=== PATIENT | female | born 1995 | race Caucasian/White ===

== ENCOUNTER 2016-06-05 05:31 | Day surgery (SDC) | payer OTHER ==
[2016-06-05] VITALS (8 sets, daily range): BP systolic 88–118; BP diastolic 44–66; PULSE 76–88; RESP 13–18; O2SAT 97–100
[~2016-06-05] VITALS: Ht 162.6 cm; Wt 89.1 kg
[2016-06-05] MEDS ORDERED: Ondansetron 2 mg/mL 2 mL Inj ONE (05:32)
[2016-06-05] MEDS ORDERED: fentaNYL-PF 50 mCg/mL 2 mL Inj ONE (05:32)
[2016-06-05] MEDS ORDERED: Propofol 10,000 mCg/mL 20 mL Inj ONE (05:32)
[2016-06-05] MEDS ORDERED: Dexamethasone 4 mg/mL Inj ONE (05:32)
[2016-06-05] MEDS ORDERED: Lactated Ringer's 1,000 ML IV ONE ×2 (05:38→07:46)
[2016-06-05] MEDS ORDERED: Lidocaine 1%-Epi 1:100,000 20 mL Inj NERVEBLOCK ONE (07:30)
[2016-06-05] MEDS ORDERED: Lactated Ringer's 500 ML IV PRN (07:46)
--- NOTE | 2016-06-05 07:46 | PCM.HPANE ---
Patient Data Surgeon Admitting Provider: Attending Provider:Sera Salvador MD Primary Care Physician:Krupa Link MD Other Provider:Neris Snideringham Anesthesia Reason for Visit Vaginal Band, Pelvic Pain Ht/WT & BMI Height (Feet): 5 Height (Inches): 4.00 Weight (Kilograms): 89.1 Body Mass Index 33.00 Allergies Coded Allergies: medroxyprogesterone (Verified Adverse Reaction, Severe, MENORRHAGIA, ) Past Anesthesia History Anesthesia History: Denies:: Abnormal Airway, Anesthesia Reactions, Difficult Intubation, Malignant Hyperthermia Diabetes History Hx Diabetes?: No MRSA MRSA: No Medications Hypertension Medication: No Home Meds Incl Beta José: No Discontinued Reported Medications #79/Iron Asp Gly/FA#1 (Prenate Elite Tablet)1 Each Tablet1 Each PO DAILY 04/05/14 Discontinued Scripts Ferrous Sulfate 325 Mg [id number] Mg PO BID #60 TABLET Ref 1 Prov:Chyna Soliman MD 04/11/14 [Ibuprofen] (Motrin)600 MG TABLET No Conflict Brwid510 Mg PO Q6H PRN For Pain # 30 TABLET Ref 1 Prov:Chyna Soliman MD 04/11/14 [Docusate Sodium] (Colace)100 MG CAPSULE No Conflict [id number] Mg PO BID #14 CAPSULE Prov:Chyna Soliman MD 04/11/14 Zolpidem (Ambien)5 Mg Uwdmxs04 Mg PO OT PRN insom #10 TAB Prov:Krupa Link MD 04/05/14 History History of ENT Problems?: No HEENT History: Denies:: Abnormal Airway Cataracts Difficult Intubation Dysphagia Glaucoma Hearing Problem Sinus Problem TMJ Hx of Heart Problems?: No Cardiovascular History: Denies:: Congestive Heart Failure Heart Murmur Hx of Respiratory Problem?: No Respiratory History: Denies:: Tuberculosis Use of C-PAP Machine Hx Neurologic Problems?: No Hx of GI Problems?: No Hx of Problems?: Yes Genitourinary History: Positive for:: Urinary Tract Infection (HX UTIS/ PYELONEPHRITIS) Female Hx: Denies:: Currently Pelvic Inflammatory (HX GENITAL HSV) Skin History: Denies:: History Skin Disorders? Pressure Ulcers Hx Musculoskeletal Problems?: No Hx of Psycho/Social Problems?: No Hx Surgeries?: Yes (C/S) Hx Any Other Health Problems?: Yes Other History: Denies:: Cancer Endocrine Disease Hospitalization Thyroid Disease History Blood Transfusions: Denies:: Blood Transfusions Hx Diabetes: No Hx Alcohol Use: Yes (occ )Hx Substance Use: No Smoking Status: Current Every Day Smoker Have You Smoked inLast 12 mo: Yes Stop/Bang S-Snoring: Do You Snore Loudly: No T-Tired: feel tired, fatigued: Yes O-Obsered: Observed not breath: No P-Blood Pressure: treated: Yes B- Body Mass Index > 35 kg/m2: No A- Age over 50: No N- Neck Large Circumference: No G- Gender Male: No ADAM Total Score: 2 ADAM Risk Assessment: Low Risk, <3 Yes Risk Assessment Category Category 1A: Patient has history of documented sleep apnea, and HAS NOT received any narcotic, sedative or anesthesia administration during this stay. Category 1B: Patient has history of documented sleep apnea, and HAS received any narcotic , sedative or anesthesia administration during this stay Category 2: Patient has SUSPECTED Obstructive Sleep Apnea, and HAS received any narcotic , sedative or anesthesia administration during this stay. Category 3: Patient has SUSPECTED Obstructive Sleep Apnea and HAS NOT received narcotic, sedative or anesthesia administration during this stay. Category 4: Outpatient in Procedural Areas with known sleep apnea or who screen positive for High Risk via the STOP/BANG questionnaire. Exam Exam Vital Signs Vital Signs Date Time Temp Pulse Resp B/P Pulse Ox O2 Delivery O2 Flow Rate FiO2 06/05/16 06:03 36.0 87 16 118/66 97 Room Air General Appearance: Alert, Oriented X3, Cooperative, No Acute Distress HEENT/AIRWAY: MP 2 Lungs: Clear to Auscultation, Normal Air Movement Heart: Exam Unremarkable, Regular Rate/Rhythm, No Murmurs/Rubs/Gallops Meds/Labs/Diagnostics Admission Meds Current Medications Lactated Ringer's (Lr) 1,000 ml @ ud STK-MED ONCE IV Last administered on t 05:38; Start 06/05/16 at 05:38; Stop 06/05/16 at 05:39; Status DC Plan Impression Patient chart reviewed, patient interviewed and anesthestic plan with risks, benefits, and alternatives discussed, and informed consent obtained. NPO Status: 06/04 at 1730 ASA Physical Status: ASA2 Mod Systemic Disease Anesthetic Plan: GA Bene/Risks/Altern/Consents: Yes HP Complete Prior to Induction: Yes Nj Suarez MD Jun 05, 2016 07:03
[2016-06-05] MEDS ORDERED: Labetalol 5 mg/mL 4 mL Inj IV PRN (07:50)
[2016-06-05] MEDS ORDERED: EPHEDrine Sulfate 50 mg/mL Inj IM PRN (07:50)
[2016-06-05] MEDS ORDERED: MetoCLOpramide 5 mg/mL 2 mL Inj IVPUSH PRN (07:50)
[2016-06-05] MEDS ORDERED: fentaNYL-PF 50 mCg/mL 2 mL Inj IVPUSH PRN (07:50)
[2016-06-05] MEDS ORDERED: EPHEDrine Sulfate 50 mg/mL Inj IVPUSH PRN (07:50)
[2016-06-05] MEDS ORDERED: Ondansetron 2 mg/mL 2 mL Inj IVPUSH PRN ×2 (07:50→08:15)
[2016-06-05] MEDS ORDERED: Atropine 0.4 mg/mL Inj IVPUSH PRN (07:50)
[2016-06-05] MEDS ORDERED: Phenylephrine 10,000 mCg/mL Inj IVPUSH PRN (07:50)
[2016-06-05] MEDS ORDERED: HYDROmorphone 1 mg/mL Inj IVPUSH PRN (07:50)
[2016-06-05] MEDS ORDERED: hydrOXYzine Inj 50 MG/1 mL SDV IM PRN (07:50)
--- NOTE | 2016-06-05 08:19 | PCM.ANEP1 ---
Post Anesthesia Phase 1 PACU Phase 1 Assessment Vital Signs Vital Signs Date Time Temp Pulse Resp B/P Pulse Ox O2 Delivery O2 Flow Rate FiO2 06/05/16 06:03 36.0 87 16 118/66 97 Room Air Anesthetic Administered: GA Level of Alertness: Sleepy, easy to arouse MURPHY's with Equal Strength: Yes Pain: No Nausea or Vomiting: No Oxygen Delivery: Simple Mask Lungs: Clear to Auscultation, Normal Air Movement Summary VSS, see RN notes for PACU VS Nj Suarez MD Jun 05, 2016 08:19
--- NOTE | 2016-06-05 08:22 | PCM.DIGYN ---
Surgical Discharge Instruction Dates of Hospitalization Date of Hospital Admission Providers Admitting Physician: Primary Care Physician: Krupa Link MD Attending Physician: Sera Salvador MD Diagnosis at Time of Discharge Diagnosis at time of discharge s/p vaginal septum removal Post-operative diagnosis vaginal septum Problems: Activity Discharge Activity-General: No restrictions Dressing and Incisional Care Hygiene: May shower, NO bathtub, hot tub or whirlpool Additional Instructions Discharge Instructions No sex or tampon in vaginal for the next 2 weeks Please call office if heavy vaginal bleeding, severe pain, foul smelling discharge, fever more than 100.4. Follow Up Plan Follow Up Plan 2 weeks in office Follow-up appointment: Weeks (2) Call your provider for: Fever, Chills, Shortness of breath, Heavy vaginal bleeding Sera Salvador MD Jun 05, 2016 08:22
--- NOTE | 2016-06-05 08:24 | PCM.ANEP2 ---
Post Anesthesia Evaluation ASA/CMS Post Anesthesia VS in Patient's Normal Range?: Yes Resp Stable; Airway Patent?: Yes CV Function & Hydration Stable: Yes Mental Status Recovered?: Yes Pain control Satisfactory?: Yes N/V Control Satisfactory?: Yes Nj Suarez MD Jun 05, 2016 08:24
--- NOTE | 2016-06-05 13:43 | OP ---
[address] [address] OPERATIVE REPORT PATIENT: NEPTALI WHITE : 1995 MR#: [id number] ADMIT: 06/05/2016 JOB ID: [id number] DATE OF SURGERY: 06/05/2016 PREOPERATIVE DIAGNOSIS(ES): Symptomatic vaginal septum. POSTOPERATIVE DIAGNOSIS(ES): Symptomatic vaginal septum. SURGEON: Sera Salvador MD INDICATIONS: This is a 20-year-old female who presented to the office for pelvic pain. During examination, it was noted she had vaginal band which is from anterior to posterior close to introitus. The decision was made for the vaginal septum removal in office. Patient claimed that she could not tolerate the pain, then the plan was made to have the septum removal in OR. Patient understood the risk of infection, bleeding, injury to the adjacent organs, including the ureteral bladder, rectum, major vessels, and nerves. Informed consent signed. DESCRIPTION OF PROCEDURE: The patient was transferred to the operating room after general anesthesia was noted to be at adequate. She was placed in dorsal lithotomy position. She was prepared and draped in normal sterile fashion. The bilateral labia minor was fixed on both sides for exposure. The vaginal septum was examined and noticed it was anterior to posterior band. The anterior started area located just beneath the urethra. Posteriorly, it ended at the posterior vaginal wall about 2 cm above the introitus. A straight catheter inserted to urethra for guiding. Then, 3 cc of lidocaine injected to the area where the band connected to the vaginal wall. Then, it was at the connection with Bovie. Then, the attention was transferred to the posterior area where the vaginal septum connected to the vaginal wall. Rectal examination performed to extinguish a clear connection, and then the hemostat clamp was used to clamp at the adjacent area where the septum was connected to the vaginal wall. Then, the band was removed by Bovie. Then, the vaginal wall was examined for hemostasis, and coagulation was used to stop the minor oozing spot. Hemostasis was achieved successfully. At this time, the patient was re-examined. It was confirmed the rectum and urethra have no injuries. All instrument, needles, laps, and gauzes collected from field and counted correct twice. The patient tolerated the procedure well. EBL was 2 cc. Urine was drained before the procedure which was about 150 cc. The patient was transferred to recovery room in a stable condition.
--- NOTE | 2016-06-05 13:45 | DIS ---
[address] [address] DISCHARGE SUMMARY PATIENT: NEPTALI WHITE : 1995 MR#: [id number] ADMIT: 06/05/2016 JOB ID: [id number] DIS: This is a 20-year-old female, 1, para 1, status post vaginal septum removal. The procedure was not complicated. The patient is doing well. Plan to discharge her home after her pain is well controlled. Ambulating well. Voiding well. Motrin 600 mg, 20 pills prescribed with no refills. Patient is instructed that if there is heavy vaginal bleeding, severe pain, fever more than 100.4, foul-smelling discharge, she needs to call office or go to the ED for evaluation. She will go back to office for followup in two weeks.
--- NOTE | 2016-06-09 11:06 | PATH ---
SURGICAL PATHOLOGY Attending Physician:Sera Salvador MD CASE STATUS: Signed Out PATIENT NAME: NEPTALI WHITE PID: [id number] : 1995 DATE COLLECTED:06/05/2016 15:52 SPECIMEN: Vagina, Biopsy CLINICAL HISTORY: 1). VAGINAL BAND FINAL DIAGNOSIS: Specimen Designated Vaginal Band: Tissue consistent with vaginal septum (band), negative for atypia and malignancy. ICD10: Q52.12 GROSS DESCRIPTION: The specimen is received in one formalin filled container labeled with the patient's name, sublabeled "vaginal gland" and consists of a flowers-gomez rough cylindrical-shaped portion of tissue which measures 3.5 x 0.7 x 0.7 CM the specimen is inked blue. Bisected and entirely submitted in one cassette. 06/05/2016 [facility] ICD-9 CODES: CPT CODES: 1: 43459 Electronically Signed Out Paul Anton MD [facility] [address], [place] [address] Technical component performed at [facility], [facility] [address], [place], [address]
== END 2016-06-05 23:59 | disposition home or self-care (01) ==
LOC: SAS 05:31
PROVIDERS: ATTEND Obstetrics & Gynecology
DX: N89.5 Stricture and atresia of vagina (principal); R10.2 Pelvic and perineal pain; F17.210 Nicotine dependence, cigarettes, uncomplicated
CPT/HCPCS: 57106; J1100; J1885; J2250; J2405; J3010; J7120